=== PATIENT | male | born 1995 | race Caucasian/White ===

== ENCOUNTER 2019-05-22 09:16 | Emergency (ER) | payer OTHER ==
[~2019-05-22] VITALS: Ht 170.2 cm; Wt 61.2 kg
--- NOTE | 2019-05-22 12:26 | REP ---
CT of the cervical spine without contrast Indication: Increased pain/numbness. Comparison: None Technique: Axial CT of the cervical spine was performed without contrast. Bone reformatted images were provided in the axial, coronal and sagittal planes. Findings: There is straightening of cervical lordosis which could be positional and related to muscle spasm. There is no acute fracture or subluxation of the cervical spine. Vertebral body heights and intervertebral disc heights are maintained. The CT appearance of the spinal canal is within normal limits. The paraspinal soft tissues are within normal limits. There is no apical pneumothorax. Impression: No acute fracture or subluxation of the cervical spine. Electronically Signed by Jessica Ochoa MD 05/22/2019 11:05 A
[2019-05-22 12:50] VITALS: BP 129/71
== END 2019-05-22 12:52 | disposition home or self-care (01) ==
LOC: M ED 09:16
DX: M54.2 Cervicalgia (principal)